=== PATIENT | male | born 1945 | race Caucasian/White ===

== ENCOUNTER 2018-05-27 08:49 | Day surgery (SDC) | payer MEDICARE ==
[~2018-05-27] VITALS: Ht 182.9 cm; Wt 88.1 kg
[~2018-05-27 08:49] MED LIST: ALBU2.5V2 IH; ALLO300T2 PO; CARV3.12 PO; CETI10TA57 PO; FLUT16H NASAL; IBUP-2070 PO; LEVO50TA11 PO; MECL-129 PO; ROSU5TAB11 PO; SODIUM CHLORIDE 0.9% 1000ML 1,000 ML IV ONE; SPIR25TA6 PO; TORS20TA4 PO; TRAM50TA4 PO; WARF7.5T49 PO
[2018-05-27 09:16] VITALS: BP 101/65
[2018-05-27 10:03] LABS: INR 1.23 (0.85-1.15); PARTIAL THROMBOPLASTIN TIME 29.5 SEC (26.3-35.5); PROTHROMBIN TIME 12.9 SEC (9.6-11.6)
[2018-05-27] MEDS ORDERED: PROPOFOL 10 MG/ML 20ML VIAL IV ONE ×2 (10:09)
[2018-05-27 10:33] VITALS: BP 112/70
[2018-05-27 10:40] VITALS: BP 118/76
[2018-05-27 10:45] VITALS: BP 119/76
== END 2018-05-27 12:27 | disposition home or self-care (01) ==
LOC: ENDO 08:49 → DAH 08:49 → ENDO 12:27
PROVIDERS: ATTEND Internal Medicine Gastroenterology
DX: K57.30 Diverticulosis of large intestine without perforation or abscess without bleeding (principal); Z86.010 Personal history of colon polyps; Z80.0 Family history of malignant neoplasm of digestive organs; Z95.1 Presence of aortocoronary bypass graft; Z98.890 Other specified postprocedural states; I10 Essential (primary) hypertension; E03.9 Hypothyroidism, unspecified; D64.9 Anemia, unspecified; M81.0 Age-related osteoporosis without current pathological fracture; M19.90 Unspecified osteoarthritis, unspecified site; Z85.828 Personal history of other malignant neoplasm of skin; Z68.39 Body mass index [BMI] 39.0-39.9, adult; Z79.01 Long term (current) use of anticoagulants; Z79.899 Other long term (current) drug therapy; Z88.8 Allergy status to other drugs, medicaments and biological substances; I25.10 Atherosclerotic heart disease of native coronary artery without angina pectoris; I34.9 Nonrheumatic mitral valve disorder, unspecified
CPT/HCPCS: 36415; 45378; 85610; 85730; 93005; A4606; J2704 ×2; J7030